=== PATIENT | female | born 1965 | race Caucasian/White ===

== ENCOUNTER 2024-01-28 18:01 | Emergency (ER) | payer OTHER, MEDICARE ==
[~2024-01-28] VITALS: Ht 170.1 cm; Wt 74.1 kg
[2024-01-28] MEDS ORDERED: VENLAFAXINE HYD75 M3 PO (18:20)
[2024-01-28] MEDS ORDERED: TRELEGY ELLIPT1 EACH INH (18:20)
[2024-01-28] MEDS ORDERED: AMLODIPINE BESYL5 MG PO (18:21)
[2024-01-28] MEDS ORDERED: METOPROLOL SUCC25 M2 PO (18:21)
[2024-01-28] MEDS ORDERED: 'CLONIDINE0.1 MG PO (18:21)
[2024-01-28] MEDS ORDERED: LATANOPROST2.5 ML OP (18:21)
[2024-01-28] MEDS ORDERED: [UNRECOGNIZED DRUG - OTHER] T (18:22)
[2024-01-28] MEDS ORDERED: METHOCARBAMOL 750 MG TAB PO ONE (18:25)
[2024-01-28] MEDS ORDERED: Acetaminophen/Hydrocodone 5 MG/325 MG TABLET PO ONE (18:25)
[2024-01-28] MEDS ORDERED: fentaNYL CITRATE 100 MCG/2 ML VIAL IV ONE (20:55)
[2024-01-28] MEDS ORDERED: SODIUM CHLORIDE 0.9% 1,000 ML IV ONE (21:55)
== END 2024-01-28 23:11 | disposition short-term general hospital (02) ==
LOC: ED 18:01
DX: S22.5XXA Flail chest, initial encounter for closed fracture (principal); J44.9 Chronic obstructive pulmonary disease, unspecified; I10 Essential (primary) hypertension; F41.9 Anxiety disorder, unspecified; F17.290 Nicotine dependence, other tobacco product, uncomplicated; Z91.041 Radiographic dye allergy status; W01.190A Fall on same level from slipping, tripping and stumbling with subsequent striking against furniture, initial encounter; Y93.89 Activity, other specified; Y92.89 Other specified places as the place of occurrence of the external cause; Y99.8 Other external cause status